=== PATIENT | male | born 1965 | race Caucasian/White ===

== ENCOUNTER 2023-05-17 08:20 | Emergency (ER) | payer OTHER ==
[~2023-05-17] VITALS: Ht 177.8 cm; Wt 84.8 kg
[2023-05-17] MEDS ORDERED: FAMOTIDINE (08:32)
[2023-05-17] MEDS ORDERED: AMLODIPINE (08:32)
[2023-05-17] MEDS ORDERED: IV NS 1000 ML 1,000 ML IV ONE (08:45)
[2023-05-17] MEDS ORDERED: HYDROMORPHONE 1 MG/1 ML DISP.SYRIN IV ONE ×2 (08:45→12:45)
[2023-05-17] MEDS ORDERED: ONDANSETRON 4 MG/2 ML VIAL IV ONE ×3 (08:45→20:00)
[2023-05-17] MEDS ORDERED: ONDANSETRON 4 MG/2 ML VIAL ONE ×3 (08:49→20:47)
[2023-05-17] MEDS ORDERED: HYDROMORPHONE 2 MG/1 ML DISP.SYRIN ONE ×2 (08:49→12:52)
[2023-05-17 09:17] LABS: BASOPHILS % (AUTO) 0.4 % (0.0-2.0); EOSINOPHILS % (AUTO) 0.4 % (0.0-7.0); HEMATOCRIT 45.2 % (36.7-47.1); HEMOGLOBIN 15.6 g/dL (12.5-16.3); LYMPHOCYTES # (AUTO) 1.2 K/uL (0.8-4.8); LYMPHOCYTES % (AUTO) 16.1 % (20.5-51.5); MEAN CORPUSCULAR HEMOGLOBIN 32.1 uug (23.8-33.4); MEAN CORPUSCULAR HGB CONC 35 g/dL (32.5-36.3); MONOCYTES # (AUTO) 0.5 K/uL (0.1-1.30); MONOCYTES % (AUTO) 6.1 % (0.0-11.0); NEUTROPHILS # (AUTO) 5.8 K/uL (1.8-8.9); PLATELET COUNT (AUTO) 201 K/uL (152-348); RED BLOOD CELL COUNT(AUTO) 4.86 MIL/uL (4.06-5.63); WHITE BLOOD COUNT (AUTO) 7.5 K/uL (3.6-10.2)
[2023-05-17 09:46] LABS: DIFFERENTIAL COMMENT 1
[2023-05-17 09:59] LABS: ALANINE AMINOTRANSFERASE 43 U/L (16-63); ALBUMIN 3.9 g/dL (3.4-5.0); ALKALINE PHOSPHATASE 67 U/L (50-136); ASPARTATE AMINOTRANSFERASE 32 U/L (15-37); BILIRUBIN,DIRECT 0.2 mg/dL (0.0-0.2); BILIRUBIN,TOTAL 0.7 mg/dL (0.2-1.0); CALCIUM 8.6 mg/dL (8.5-10.1); CARBON DIOXIDE 24 mmol/L (21-32); CHLORIDE 102 mmol/L (98-107); GLUCOSE 144 mg/dL (74-106); LIPASE 43 U/L (16-77); POTASSIUM 3.3 mmol/L (3.5-5.1); SODIUM SERUM 138 mmol/L (136-145); TOTAL PROTEIN, SERUM 7.2 g/dL (6.4-8.2); UREA NITROGEN, BLOOD 12 mg/dL (7-18)
[2023-05-17] MEDS ORDERED: NITROGLYCERIN OINT 1 GM PACKET TP ONE ×2 (10:30→10:40)
[2023-05-17] MEDS ORDERED: POTASSIUM BICARBONATE/CIT AC 25 MEQ TABLET.EFF PO ONE (10:30)
[2023-05-17] MEDS ORDERED: ASPIRIN 81 MG TAB.CHEW PO ONE (10:30)
[2023-05-17] MEDS ORDERED: POTASSIUM BICARBONATE/CIT AC 25 MEQ TABLET.EFF ONE (10:40)
[2023-05-17] MEDS ORDERED: ASPIRIN 81 MG TAB.CHEW ONE (10:40)
[2023-05-17] MEDS ORDERED: MAGNESIUM SULFATE/D5W 200 ML ONE (10:41)
[2023-05-17] MEDS ORDERED: MAGNESIUM SULFATE 2 GM in IV DEXTROSE 5% 100 ML IV ONE (10:45)
[2023-05-17] MEDS ORDERED: METOPROLOL TARTRATE 50 MG TABLET PO ONE (10:45)
[2023-05-17] MEDS ORDERED: IOHEXOL 300MG/ML 100 ML INFUS..BTL ONE (10:55)
[2023-05-17] MEDS ORDERED: SWABABLE VALVE TRANSFER SET EA MC ONE (10:55)
[2023-05-17] MEDS ORDERED: IV NORMAL SALINE 250 ML IV ONE (10:55)
[2023-05-17] MEDS ORDERED: METOPROLOL TARTRATE 50 MG TABLET ONE (11:03)
[2023-05-17] MEDS ORDERED: PROCHLORPERAZINE EDISYLATE 10 MG/2 ML VIAL IV ONE (12:45)
[2023-05-17] MEDS ORDERED: PROCHLORPERAZINE EDISYLATE 10 MG/2 ML VIAL ONE (12:52)
[2023-05-17] MEDS ORDERED: NITROGLYCERIN IV 250 ML IV PRN (13:00)
[2023-05-17] MEDS ORDERED: NITROGLYCERIN IV 250 ML ONE (13:11)
[2023-05-17 13:49] VITALS: BP 139/86
[2023-05-18 03:15] VITALS: O2SAT 97
== END 2023-05-18 03:29 | disposition short-term general hospital (02) ==
LOC: ER 08:22
DX: K76.0 Fatty (change of) liver, not elsewhere classified (principal); R10.13 Epigastric pain; R79.89 Other specified abnormal findings of blood chemistry; I10 Essential (primary) hypertension; K21.9 Gastro-esophageal reflux disease without esophagitis
CPT/HCPCS: 99291; 74177; 96365; 96375; 76705; 71045; 96361; 96366; 80076; 80048; 82140; 83690; 83735; 85025; 84484 ×4; 36415; 93005 ×3; 96376; 83605; J3475 ×2; J3490; J2405 ×3; Q9967; J0780; J1170 ×2; J7040; A4606; A4663